=== PATIENT | male | born 1990 | race Caucasian/White ===

== ENCOUNTER 2020-10-01 13:30 | Emergency (ER) | payer SELFPAY ==
[~2020-10-01] VITALS: Ht 175.3 cm; Wt 80.1 kg
[2020-10-01] MEDS ORDERED: NS 1,000 ML IV ONE (17:45)
[2020-10-01] MEDS ORDERED: ACETAMINOPHEN 500 MG TAB PO ONE (18:00)
[2020-10-01 18:33] LABS: BASO % 0.3 % (0.0-1.0); EOS # 0.1 10^3/uL (0.0-0.5); EOS % 0.7 % (0.0-3.0); HEMATOCRIT 49.1 % (42.0-52.0); HEMOGLOBIN 16.2 g/dl (13.5-17.5); LYMPH # 2.3 10^3/uL (1.5-5.0); LYMPH % 21.2 % (24.0-44.0); MEAN CORPUSCULAR HEMOGLOBIN 29.3 pg (27.0-33.0); MEAN CORPUSCULAR VOLUME 88.9 fl (80.0-96.0); MONO # 0.6 10^3/uL (0.0-0.8); MONO % 5.5 % (2.0-8.0); NEUTROPHILS # 7.8 10^3/uL (1.5-8.5); NEUTROPHILS % 71.8 % (36.0-66.0); PLATELET COUNT, AUTOMATED 310 10^3/uL (150-450); RED BLOOD COUNT 5.52 10^6/uL (4.30-6.10); WHITE BLOOD COUNT 10.8 10^3/uL (4.0-10.0)
[2020-10-01 18:57] LABS: ALBUMIN 4.4 GM/DL (3.2-5.2); ALT/SGPT 41 U/L (12-78); BILIRUBIN,DIRECT 0.1 MG/DL (0.0-0.2); BILIRUBIN,TOTAL 0.4 MG/DL (0.2-1.0); BLOOD UREA NITROGEN 9 MG/DL (7-18); CALCIUM LEVEL 9.8 MG/DL (8.5-10.1); CARBON DIOXIDE LEVEL 30 MEQ/L (21-32); CHLORIDE LEVEL 105 MEQ/L (98-107); CK-MB VALUE MASS < 1.0 NG/ML (<3.6); CPK CREATINE PHOSPHOKINASE 90 U/L (39-308); CREATININE FOR GFR 0.89 MG/DL (0.70-1.30); GLOMERULAR FILTRATION RATE > 60.0 (>60); GLUCOSE, FASTING 90 MG/DL (70-100); LIPASE 148 U/L (73-393); MB/CK RELATIVE INDEX 1.11 (< OR =4); SODIUM LEVEL 138 MEQ/L (136-145); TOTAL PROTEIN 7.9 GM/DL (6.4-8.2); TROPONIN I < 0.02 NG/ML (< 0.10)
--- NOTE | 2020-10-01 19:44 | REP ---
INDICATION: CHEST PRESSURE. COMPARISON: None. TECHNIQUE: Single portable AP view of the chest was performed. FINDINGS: There is no acute infiltrate or pulmonary edema. Lungs are clear. The heart is not significantly enlarged. The mediastinal silhouette is unremarkable. The visualized osseous structures are intact. IMPRESSION: No acute pulmonary disease. <Electronically signed by Freddy Ordonez > 10/01/201939
[2020-10-01 19:52] VITALS: O2SAT 97
--- NOTE | 2020-10-01 20:16 | ECGEPIP ---
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
[2020-10-01 20:29] VITALS: BP 135/74
== END 2020-10-01 20:50 | disposition home or self-care (01) ==
LOC: M ED 13:30
DX: Z11.52 Encounter for screening for COVID-19 (principal); J06.9 Acute upper respiratory infection, unspecified; K21.9 Gastro-esophageal reflux disease without esophagitis; F12.20 Cannabis dependence, uncomplicated
CPT/HCPCS: 36415; 71045; 80048; 80076; 81001; 82550; 82553; 83690; 84484; 85025; 93005; 96360; 96361; 99284; U0003

== ENCOUNTER 2020-11-09 10:05 | Emergency (ER) | payer SELFPAY ==
[~2020-11-09] VITALS: Ht 175.3 cm; Wt 80.7 kg
[2020-11-09] MEDS ORDERED: OMEP40CA4 PO ×2 (10:13→13:43)
[2020-11-09 12:02] LABS: BASO % 0.4 % (0.0-1.0); EOS % 0.5 % (0.0-3.0); HEMATOCRIT 46.5 % (42.0-52.0); HEMOGLOBIN 15.3 g/dl (13.5-17.5); LYMPH # 1.5 10^3/uL (1.5-5.0); LYMPH % 19.6 % (24.0-44.0); MEAN CORPUSCULAR HEMOGLOBIN 29.3 pg (27.0-33.0); MEAN CORPUSCULAR HGB CONC 32.9 g/dl (32.0-36.5); MEAN CORPUSCULAR VOLUME 88.9 fl (80.0-96.0); MONO # 0.5 10^3/uL (0.0-0.8); NEUTROPHILS # 5.5 10^3/uL (1.5-8.5); NEUTROPHILS % 72.2 % (36.0-66.0); PLATELET COUNT, AUTOMATED 258 10^3/uL (150-450); RED BLOOD COUNT 5.23 10^6/uL (4.30-6.10); WHITE BLOOD COUNT 7.6 10^3/uL (4.0-10.0)
[2020-11-09 12:31] LABS: ALBUMIN 4.1 GM/DL (3.2-5.2); ALT/SGPT 37 U/L (12-78); BILIRUBIN,DIRECT 0.2 MG/DL (0.0-0.2); BILIRUBIN,TOTAL 0.5 MG/DL (0.2-1.0); BLOOD UREA NITROGEN 10 MG/DL (7-18); CALCIUM LEVEL 9.7 MG/DL (8.5-10.1); CARBON DIOXIDE LEVEL 31 MEQ/L (21-32); CHLORIDE LEVEL 105 MEQ/L (98-107); CREATININE FOR GFR 0.86 MG/DL (0.70-1.30); GLOMERULAR FILTRATION RATE > 60.0 (>60); GLUCOSE, FASTING 106 MG/DL (70-100); LIPASE 126 U/L (73-393); SODIUM LEVEL 138 MEQ/L (136-145); TOTAL PROTEIN 7.3 GM/DL (6.4-8.2)
[2020-11-09 13:56] VITALS: BP 147/88
--- NOTE | 2020-11-10 06:48 | ECGEPIP ---
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
== END 2020-11-09 13:59 | disposition home or self-care (01) ==
LOC: M ED 10:05
DX: K21.9 Gastro-esophageal reflux disease without esophagitis (principal); R20.2 Paresthesia of skin; Z79.899 Other long term (current) drug therapy

== ENCOUNTER → 2020-11-15 | Outpatient (CLI) | payer SELFPAY ==
[~2020-11-15] MED LIST: OMEP40CA4 PO
--- NOTE | 2020-11-15 16:39 | REP ---
INDICATION: RADICULOPATHY, CERVICAL REGION. COMPARISON: None. TECHNIQUE: Four views FINDINGS: The acromioclavicular and glenohumeral relationships are within normal limits. There is no fracture, dislocation, or subluxation. IMPRESSION: Normal exam <Electronically signed by Berto Teixeira > 11/15/20 [id number]
--- NOTE | 2020-11-15 16:46 | REP ---
INDICATION: RADICULOPATHY, CERVICAL REGION. NO HISTORY OF TRAUMA WHATSOEVER. COMPARISON: None. TECHNIQUE: AP, lateral, and open-mouth views. FINDINGS: Three limited view show no gross abnormality. Secondary to the superimposition of dentition and or osseous structures the dense cannot be evaluated. IMPRESSION: Negative limited exam <Electronically signed by Berto Teixeira > 11/15/20 [id number]
== END ==
LOC: M SOG 14:31
PROVIDERS: ATTEND Orthopaedic Surgery Sports Medicine
DX: M54.12 Radiculopathy, cervical region (principal)

== ENCOUNTER 2020-12-18 14:18 | Outpatient (RCR) | payer SELFPAY | END 2020-12-22 | LOC: M PT 14:18 | PROVIDERS: ATTEND Orthopaedic Surgery Sports Medicine | DX: M54.12 Radiculopathy, cervical region (principal) ==

== ENCOUNTER 2021-01-19 20:25 | Emergency (ER) | payer SELFPAY ==
[~2021-01-19] VITALS: Ht 175.3 cm; Wt 79.3 kg
[2021-01-19 22:16] LABS: BASO % 0.3 % (0.0-1.0); EOS # 0.2 10^3/uL (0.0-0.5); EOS % 1.4 % (0.0-3.0); HEMATOCRIT 45.1 % (42.0-52.0); HEMOGLOBIN 15.5 g/dl (13.5-17.5); LYMPH # 1.5 10^3/uL (1.5-5.0); LYMPH % 13.2 % (24.0-44.0); MEAN CORPUSCULAR HGB CONC 34.4 g/dl (32.0-36.5); MEAN CORPUSCULAR VOLUME 87.4 fl (80.0-96.0); MONO # 0.8 10^3/uL (0.0-0.8); MONO % 6.8 % (2.0-8.0); NEUTROPHILS # 8.6 10^3/uL (1.5-8.5); NEUTROPHILS % 77.9 % (36.0-66.0); PLATELET COUNT, AUTOMATED 273 10^3/uL (150-450); RED BLOOD COUNT 5.16 10^6/uL (4.30-6.10)
[2021-01-19 22:50] LABS: BLOOD UREA NITROGEN 10 MG/DL (7-18); CALCIUM LEVEL 9.4 MG/DL (8.5-10.1); CARBON DIOXIDE LEVEL 29 MEQ/L (21-32); CHLORIDE LEVEL 105 MEQ/L (98-107); CK-MB VALUE MASS < 1.0 NG/ML (<3.6); CPK CREATINE PHOSPHOKINASE 119 U/L (39-308); CREATININE FOR GFR 0.88 MG/DL (0.70-1.30); GLOMERULAR FILTRATION RATE > 60.0 (>60); GLUCOSE, FASTING 109 MG/DL (70-100); MAGNESIUM LEVEL 2.4 MG/DL (1.8-2.4); MB/CK RELATIVE INDEX 0.84 (< OR =4); POTASSIUM SERUM 3.7 MEQ/L (3.5-5.1); SODIUM LEVEL 139 MEQ/L (136-145); TROPONIN I < 0.02 NG/ML (< 0.10)
--- NOTE | 2021-01-19 23:14 | REPVR ---
PROCEDURE INFORMATION: Exam: XR Chest Exam date and time: 01/19/21 (10:12pm) Age: 30 years old Clinical indication: Chest congestion and pain TECHNIQUE: Imaging protocol: Portable CXR Views: 1 view COMPARISON: Portable CXR of 10/01/20 FINDINGS: Lungs: Unremarkable. No consolidation. Incidental note of an azygous lobe (anatomic variant). Pleural spaces: Unremarkable. No pleural effusions. No pneumothorax. Heart/Mediastinum: Unremarkable. No cardiomegaly. Bones/joints: Unremarkable. IMPRESSION: No acute findings. Lung graves remain clear. Electronically signed by: Yeni Whiting On 01/19/2021 23:14:01 PM
[2021-01-19] MEDS ORDERED: AZITHROMYCIN 250MG TABLET PO ONE (23:55)
[2021-01-19] MEDS ORDERED: AZIT500T5 PO (23:56)
[2021-01-20 00:17] VITALS: BP 133/81
--- NOTE | 2021-01-20 19:18 | ECGEPIP ---
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
== END 2021-01-20 00:18 | disposition home or self-care (01) ==
LOC: M ED 20:25
DX: J16.0 Chlamydial pneumonia (principal)

== ENCOUNTER → 2021-09-26 | Outpatient (REF) | payer OTHER ==
[~2021-09-26] MED LIST changes: +AZIT500T5 PO
[2021-09-27 01:54] LABS: GC DNA AMPLIFICATION NEGATIVE (NEGATIVE)
== END ==
LOC: M LAB REF 23:41
PROVIDERS: ATTEND Physician Assistant
DX: R30.0 Dysuria (principal); J02.9 Acute pharyngitis, unspecified; R50.9 Fever, unspecified

== ENCOUNTER → 2022-03-30 | Outpatient (REF) | payer OTHER ==
[2022-03-30 19:04] LABS: APPEARANCE, URINE MANUAL CLOUDY (CLEAR); COLOR, URINE MANUAL YELLOW (YELLOW)
[2022-03-30 19:07] LABS: SPECIFIC GRAVITY,URINE MANUAL 1.015 (1.002-1.035)
[2022-03-30 19:08] LABS: BILIRUBIN, URINE MANUAL NEGATIVE (NEGATIVE); BLOOD URINE MANUAL NEGATIVE (NEGATIVE); GLUCOSE, URINE (UA) MANUAL NEGATIVE (NEGATIVE); KETONE, URINE MANUAL NEGATIVE (NEGATIVE); LEUKOCYTE ESTERASE, URINE MAN NEGATIVE (NEGATIVE); NITRITE, URINE MANUAL NEGATIVE (NEGATIVE); PROTEIN, URINE MANUAL NEGATIVE (NEGATIVE); UROBILINOGEN, URINE MANUAL NORMAL (NORMAL)
[2022-03-30 19:13] LABS: WBC, URINE NONE SEEN /hpf (0-3)
[2022-03-30 19:14] LABS: AMORPHOUS SEDIMENT, URINE MOD AMOUNT (NEGATIVE); BACTERIA, URINE NONE SEEN; HYALINE CAST, URINE NONE SEEN /lpf (0-1); RBC, URINE NONE SEEN /hpf (0-3); SQUAMOUS EPITHELIAL CELL URINE NONE SEEN /hpf (SMALL AMT)
[2022-03-30 20:43] LABS: GC DNA AMPLIFICATION NEGATIVE (NEGATIVE)
== END ==
LOC: M LAB REF 18:26
PROVIDERS: ATTEND Physician Assistant
DX: N39.0 Urinary tract infection, site not specified (principal); Z11.3 Encounter for screening for infections with a predominantly sexual mode of transmission

== ENCOUNTER 2022-04-05 14:59 | Emergency (ER) | payer OTHER ==
[~2022-04-05] VITALS: Ht 175.3 cm; Wt 87.5 kg
[2022-04-05 15:00] VITALS: BP 130/80
[2022-04-05] MEDS ORDERED: NAPR-837 PO (16:16)
== END 2022-04-05 16:25 | disposition home or self-care (01) ==
LOC: M ED 14:59
DX: M54.12 Radiculopathy, cervical region (principal); K21.9 Gastro-esophageal reflux disease without esophagitis; Z79.899 Other long term (current) drug therapy